=== PATIENT | female | born 1935 | race Caucasian/White ===

== ENCOUNTER 2017-05-26 21:29 | Inpatient (IN) | payer MEDICARE, MEDICAID ==
[~2017-05-26] VITALS: Ht 162.6 cm; Wt 79.2 kg
[~2017-05-26 21:29] MED LIST: AMLO5TAB4 PO; ASPI-1158 PO; ATOR20TA PO; ATOR20TA65 PO; DEXL60CA3 PO; ISOS20TA8 PO; LOSA100T3 PO; MONT10TA21 PO; OLME40TA12 PO; ONDA4TAB5 PO; ZOLP10TA2 PO
[2017-05-26] MEDS ORDERED: ALBUTEROL (0.083%) 2.5MG/3ML NEB HHN STA (23:42)
[2017-05-26] MEDS ORDERED: IPRATROPIUM BROMIDE (0.02%) 0.5MG/2.5ML NEB HHN STA (23:42)
[2017-05-27] VITALS (30 sets, daily range): BP systolic 84–184; BP diastolic 39–141
[2017-05-27 00:33] LABS: MEAN CORPUSCULAR HEMOGLOBIN 29.6 pg (28.0-32.0); MEAN CORPUSCULAR VOLUME 91.1 fL (81.0-99.0); MEAN PLATELET VOLUME 6.9 fl (7.4-10.4); PLATELET 224 x1000/uL (130-400); RED BLOOD CELL COUNT 1.99 mill/uL (4.2-5.4)
[2017-05-27 00:36] LABS: HEMOGLOBIN. 5.9 g/dL (12.0-16.0)
[2017-05-27 00:37] LABS: HEMATOCRIT. 18.2 % (36.0-48.0)
[2017-05-27 00:41] LABS: INR 1.1; PROTHROMBIN TIME 11.8 sec (9.4-11.6)
[2017-05-27 00:58] LABS: CHLORIDE 105 mEq/L (98-107); TROPONIN I 0.09 ng/mL (0.00-0.04)
[2017-05-27] MEDS ORDERED: INSULIN REGULAR (HUMULIN R) 300UNITS/3ML IV SCH (01:30)
[2017-05-27] MEDS ORDERED: AZITHROMYCIN 500 MG in DEXT 5% WATER 250 ML IV SCH (01:30)
[2017-05-27] MEDS ORDERED: CALCIUM CHLORIDE 1GM/10ML SYR IV SCH (01:30)
[2017-05-27] MEDS ORDERED: SODIUM BICARBONATE 8.4% 1 MEQ/ML 50ML SYR IV SCH (01:30)
[2017-05-27] MEDS ORDERED: CEFTRIAXONE 1 G PREMIX 50 ML IV SCH (01:30)
[2017-05-27] MEDS ORDERED: DEXTROSE 50% WATER 50ML SYRINGE IV SCH (01:30)
[2017-05-27] MEDS ORDERED: SODIUM POLYSTYRENE SULFONATE 15 G/60 ML BOT PO SCH (01:30)
[2017-05-27 02:13] LABS: PLATELET ESTIMATE NORMAL
[2017-05-27] MEDS ORDERED: LIDOCAINE HCL 1% 20ML VIAL (Pyxis) INJ ONE (11:26)
[2017-05-27] MEDS ORDERED: ALBUTEROL (0.083%) 2.5MG/3ML NEB ONE (11:57)
[2017-05-27] MEDS ORDERED: IPRATROPIUM BROMIDE (0.02%) 0.5MG/2.5ML NEB ONE (11:57)
[2017-05-27 12:11] LABS: HEPATITIS B SURFACE ANTIGEN NEGATIVE
[2017-05-27 12:40] LABS: HEPATITIS B CORE AB IGM NEGATIVE
[2017-05-27 12:41] LABS: HEPATITIS A AB IGM NEGATIVE (NEGATIVE)
[2017-05-27] MEDS ORDERED: IPRATROPIUM/ALBUTEROL 0.5-3(2.5)MG/3ML NEB HHN PRN (12:45)
[2017-05-27] MEDS ORDERED: LORAZEPAM 2MG/ML CPJ IV PRN (15:00)
[2017-05-27] MEDS ORDERED: MORPHINE SULFATE 2 MG/ML CPJ (NOT FOR IM USE) IV PRN (15:00)
[2017-05-27] MEDS ORDERED: LORAZEPAM 2MG/ML CPJ IV NR (15:30)
[2017-05-27] MEDS ORDERED: PANTOPRAZOLE SODIUM 40 MG/VIAL IV NR (15:30)
[2017-05-27 16:05] LABS: BG DEOXYHEMOGLOBIN 2.5 % (0.0-5.0); BG HCO3 ACT 12.5 mmol/L (22.0-26.0); BG METHEMOGLOBIN 0.3 % (0.0-1.5); BG OXYGEN SATURATION 97.5 % (92.0-98.5); BG OXYHEMOGLOBIN 96.2 % (94.0-97.0); BG PCO2 36.2 mmHg (35.0-45.0); BG PH 7.157 (7.350-7.450); BG PO2 109.4 mmHg (75.0-100.0); BG SAMPLE SITE RIGHT RADIAL; BG VENT MODE NASAL CANNULA
[2017-05-27] MEDS: IPRATROPIUM/ALBUTEROL 0.5-3(2.5)MG/3ML NEB HHN SCH ×2 (16:57→21:00)
[2017-05-27] MEDS ORDERED: ONDANSETRON HCL 4MG/2ML VIAL IV PRN (17:30)
[2017-05-27] MEDS ORDERED: SODIUM BICARBONATE 8.4% 1 MEQ/ML 50ML SYR IV NR (17:30)
[2017-05-27] MEDS ORDERED: DILTIAZEM HCL 5MG/ML 5ML VIAL IV NR ×2 (20:00→21:45)
[2017-05-27] MEDS: DILTIAZEM HCL 125 MG in SODIUM CHLORIDE 0.9% 100 ML IV PRN (20:11)
[2017-05-27] MEDS ORDERED: VECURONIUM BROMIDE 10 MG/VIAL IV ONE (21:00)
[2017-05-27] MEDS ORDERED: ETOMIDATE 2MG/ML 10ML VIAL IV ONE (21:00)
[2017-05-27] MEDS ORDERED: STERILE WATER FOR INJECTION 10ML VIAL ONE (21:00)
[2017-05-27] MEDS ORDERED: NOREPINEPHRINE 8 MG in DEXT 5% WATER 242 ML IV PRN (22:00)
[2017-05-27] MEDS: PROPOFOL 10MG/ML 100ML 100 ML IV PRN (22:20)
[2017-05-27 22:32] LABS: BG BASE EXCESS -1.6 mmol/L (-2.0-2.0); BG CARBOXYHEMOGLOBIN 0.3 % (0.5-1.5); BG DEOXYHEMOGLOBIN 0.6 % (0.0-5.0); BG FRACTION INSPIRED OXYGEN 100; BG HCO3 ACT 22.6 mmol/L (22.0-26.0); BG METHEMOGLOBIN 0.2 % (0.0-1.5); BG OXYGEN SATURATION 99.4 % (92.0-98.5); BG OXYHEMOGLOBIN 98.9 % (94.0-97.0); BG PCO2 36.2 mmHg (35.0-45.0); BG PH 7.414 (7.350-7.450); BG SAMPLE SITE RIGHT RADIAL; BG TIDAL VOLUME(mL) 500 mL; BG TOTAL HEMOGLOBIN 9.8 g/dL (12.0-18.0); BG VENT MODE VENT - A/C; BG VENT RATE 18 set
[2017-05-27] MEDS: AMLODIPINE 5MG TABLET PO SCH (22:37)
[2017-05-27] MEDS: ATORVASTATIN CALCIUM 20MG TABLET PO SCH (22:37)
[2017-05-28] VITALS (96 sets, daily range): BP systolic 88–163; BP diastolic 45–91
[2017-05-28] MEDS: IPRATROPIUM/ALBUTEROL 0.5-3(2.5)MG/3ML NEB HHN SCH ×6 (00:23→20:12)
[2017-05-28] MEDS: DILTIAZEM HCL 125 MG in SODIUM CHLORIDE 0.9% 100 ML IV PRN ×2 (04:44→17:50)
[2017-05-28] MEDS: PROPOFOL 10MG/ML 100ML 100 ML IV PRN ×3 (04:54→20:12)
[2017-05-28 05:46] LABS: HEMATOCRIT 21.8 % (36.0-48.0); HEMOGLOBIN 7.5 g/dL (12.0-16.0); MEAN CORPUSCULAR HEMOGLOBIN 30.5 pg (28.0-32.0); MEAN CORPUSCULAR VOLUME 88.4 fL (81.0-99.0); PLATELET 210 x1000/uL (130-400); RED BLOOD CELL COUNT 2.47 mill/uL (4.2-5.4); RED CELL DISTRIBUTION WIDTH 16.1 % (11.6-14.6)
[2017-05-28 08:18] LABS: BG BASE EXCESS -1.8 mmol/L (-2.0-2.0); BG CARBOXYHEMOGLOBIN 0.6 % (0.5-1.5); BG DEOXYHEMOGLOBIN 1.5 % (0.0-5.0); BG FRACTION INSPIRED OXYGEN 40; BG HCO3 ACT 21.6 mmol/L (22.0-26.0); BG METHEMOGLOBIN 0.3 % (0.0-1.5); BG OXYGEN SATURATION 98.5 % (92.0-98.5); BG OXYHEMOGLOBIN 97.6 % (94.0-97.0); BG PCO2 30.4 mmHg (35.0-45.0); BG PH 7.469 (7.350-7.450); BG PO2 108.9 mmHg (75.0-100.0); BG SAMPLE SITE RIGHT RADIAL; BG TIDAL VOLUME(mL) 500 mL; BG TOTAL HEMOGLOBIN 6.9 g/dL (12.0-18.0); BG VENT MODE VENT - A/C; BG VENT RATE 16 set
[2017-05-28] MEDS ORDERED: METOPROLOL TARTRATE 50MG TABLET PO SCH ×2 (09:00)
[2017-05-28] MEDS: AMLODIPINE 5MG TABLET PO SCH ×2 (09:00→21:46)
[2017-05-28] MEDS: PANTOPRAZOLE SODIUM 40 MG/VIAL IV SCH (09:47)
[2017-05-28] MEDS ORDERED: LEVOFLOXACIN 750MG PREMIX 150 ML IV SCH (13:00)
[2017-05-28] MEDS ORDERED: HEPARIN SODIUM 1,000 UNIT/1ML VIAL IV NR (17:08)
[2017-05-28] MEDS: ATORVASTATIN CALCIUM 20MG TABLET PO SCH (21:46)
[2017-05-28] MEDS: METOPROLOL TARTRATE 25MG TABLET PO SCH (21:46)
[2017-05-29] VITALS (86 sets, daily range): BP systolic 95–159; BP diastolic 39–100
[2017-05-29] MEDS: IPRATROPIUM/ALBUTEROL 0.5-3(2.5)MG/3ML NEB HHN SCH ×7 (00:40→23:53)
[2017-05-29] MEDS: PROPOFOL 10MG/ML 100ML 100 ML IV PRN ×4 (02:11→19:40)
[2017-05-29 05:56] LABS: BASOPHILS % 0.4 % (0.0-2.0); EOSINOPHILS % 1.1 % (0.0-5.0); MEAN CORPUSCULAR HEMOGLOBIN 30.4 pg (28.0-32.0); MEAN CORPUSCULAR VOLUME 88.2 fL (81.0-99.0); MEAN PLATELET VOLUME 7.2 fl (7.4-10.4); MONOCYTES % 6.2 % (2.0-8.0); NEUTROPHILS % 86.3 % (40.0-76.0); PLATELET 177 x1000/uL (130-400); RED BLOOD CELL COUNT 2.31 mill/uL (4.2-5.4); RED CELL DISTRIBUTION WIDTH 16.5 % (11.6-14.6)
[2017-05-29 06:28] LABS: HEMATOCRIT. 20.4 % (36.0-48.0)
[2017-05-29 07:12] LABS: BG BASE EXCESS 1.8 mmol/L (-2.0-2.0); BG DEOXYHEMOGLOBIN 2.5 % (0.0-5.0); BG METHEMOGLOBIN 0.6 % (0.0-1.5); BG OXYGEN SATURATION 97.5 % (92.0-98.5); BG OXYHEMOGLOBIN 96.9 % (94.0-97.0); BG PCO2 38.7 mmHg (35.0-45.0); BG PH 7.445 (7.350-7.450); BG PO2 101.4 mmHg (75.0-100.0); BG SAMPLE SITE RIGHT RADIAL; BG TIDAL VOLUME(mL) 500 mL; BG TOTAL HEMOGLOBIN 8.3 g/dL (12.0-18.0); BG VENT MODE VENT - A/C; BG VENT RATE 12 set
[2017-05-29] MEDS: PANTOPRAZOLE SODIUM 40 MG/VIAL IV SCH (08:53)
[2017-05-29] MEDS: METOPROLOL TARTRATE 25MG TABLET PO SCH (08:53)
[2017-05-29] MEDS: AMLODIPINE 5MG TABLET PO SCH (08:54)
[2017-05-29] MEDS: LEVOTHYROXINE SODIUM 25MCG TABLET PO SCH (08:54)
[2017-05-29] MEDS: DILTIAZEM HCL 125 MG in SODIUM CHLORIDE 0.9% 100 ML IV PRN (09:22)
[2017-05-29] MEDS ORDERED: PHENYLEPHRINE 10 MG in DEXT 5% WATER 249 ML IV PRN (09:45)
[2017-05-29] MEDS ORDERED: AMIODARONE HCL 150 MG in DEXT 5% WATER 100 ML IV NR (10:30)
[2017-05-29] MEDS ORDERED: AMIODARONE HCL 900 MG in DEXT 5% WATER 482 ML IV SCH (10:30)
[2017-05-29] MEDS: ATORVASTATIN CALCIUM 20MG TABLET PO SCH (21:07)
[2017-05-30] VITALS (72 sets, daily range): BP systolic 121–180; BP diastolic 46–122
[2017-05-30] MEDS: PROPOFOL 10MG/ML 100ML 100 ML IV PRN ×2 (01:55→06:42)
[2017-05-30] MEDS: IPRATROPIUM/ALBUTEROL 0.5-3(2.5)MG/3ML NEB HHN SCH ×5 (04:11→20:04)
[2017-05-30] MEDS: LEVOTHYROXINE SODIUM 25MCG TABLET PO SCH (05:36)
[2017-05-30 05:38] LABS: HEMATOCRIT. 24.7 % (36.0-48.0); HEMOGLOBIN. 8.2 g/dL (12.0-16.0); MEAN CORPUSCULAR HEMOGLOBIN 29.1 pg (28.0-32.0); MEAN CORPUSCULAR VOLUME 87.5 fL (81.0-99.0); MEAN PLATELET VOLUME 7.4 fl (7.4-10.4); PLATELET 163 x1000/uL (130-400); RED BLOOD CELL COUNT 2.83 mill/uL (4.2-5.4); RED CELL DISTRIBUTION WIDTH 17.8 % (11.6-14.6)
[2017-05-30 06:22] LABS: PHOSPHORUS 2.6 mg/dL (2.5-4.9)
[2017-05-30 07:58] LABS: BG CARBOXYHEMOGLOBIN 0.3 % (0.5-1.5); BG DEOXYHEMOGLOBIN 2.8 % (0.0-5.0); BG FRACTION INSPIRED OXYGEN 35; BG HCO3 ACT 24.9 mmol/L (22.0-26.0); BG METHEMOGLOBIN 0.4 % (0.0-1.5); BG OXYGEN SATURATION 97.2 % (92.0-98.5); BG OXYHEMOGLOBIN 96.5 % (94.0-97.0); BG PCO2 36.7 mmHg (35.0-45.0); BG PO2 95.9 mmHg (75.0-100.0); BG SAMPLE SITE RIGHT RADIAL; BG TIDAL VOLUME(mL) 500 mL; BG TOTAL HEMOGLOBIN 9.5 g/dL (12.0-18.0); BG VENT MODE VENT - A/C; BG VENT RATE 12 set
[2017-05-30] MEDS: PANTOPRAZOLE SODIUM 40 MG/VIAL IV SCH (08:46)
[2017-05-30] MEDS: CLONIDINE 0.1MG TABLET PO PRN ×2 (10:08→16:28)
[2017-05-30 10:36] LABS: BG BASE EXCESS 1.6 mmol/L (-2.0-2.0); BG CARBOXYHEMOGLOBIN 0.3 % (0.5-1.5); BG DEOXYHEMOGLOBIN 1.6 % (0.0-5.0); BG FRACTION INSPIRED OXYGEN 35; BG HCO3 ACT 25.6 mmol/L (22.0-26.0); BG METHEMOGLOBIN 0.2 % (0.0-1.5); BG OXYGEN SATURATION 98.4 % (92.0-98.5); BG OXYHEMOGLOBIN 97.9 % (94.0-97.0); BG PCO2 37.8 mmHg (35.0-45.0); BG PH 7.448 (7.350-7.450); BG PO2 130.3 mmHg (75.0-100.0); BG PRESSURE SUPPORT 8; BG SAMPLE SITE RIGHT RADIAL; BG TOTAL HEMOGLOBIN 10.4 g/dL (12.0-18.0); BG VENT MODE VENT - CPAP
[2017-05-30 12:00] LABS: PLATELET ESTIMATE NORMAL
[2017-05-30] MEDS: AMIODARONE HCL 200 MG TABLET PO SCH ×2 (12:36→20:13)
[2017-05-30] MEDS: LEVOFLOXACIN 500MG PREMIX 100 ML IV SCH (14:18)
[2017-05-30] MEDS: ATORVASTATIN CALCIUM 20MG TABLET PO SCH (20:13)
[2017-05-31] VITALS (53 sets, daily range): BP systolic 125–163; BP diastolic 49–83
[2017-05-31] MEDS: IPRATROPIUM/ALBUTEROL 0.5-3(2.5)MG/3ML NEB HHN SCH ×6 (00:14→20:21)
[2017-05-31] MEDS: LEVOTHYROXINE SODIUM 25MCG TABLET PO SCH (05:33)
[2017-05-31 06:02] LABS: HEMATOCRIT. 25.5 % (36.0-48.0); HEMOGLOBIN. 8.3 g/dL (12.0-16.0); MEAN CORPUSCULAR VOLUME 88.9 fL (81.0-99.0); MEAN PLATELET VOLUME 7.4 fl (7.4-10.4); PLATELET 192 x1000/uL (130-400); RED BLOOD CELL COUNT 2.87 mill/uL (4.2-5.4); RED CELL DISTRIBUTION WIDTH 17.3 % (11.6-14.6)
[2017-05-31] MEDS: PANTOPRAZOLE SODIUM 40 MG/VIAL IV SCH (09:48)
[2017-05-31] MEDS: AMIODARONE HCL 200 MG TABLET PO SCH ×2 (09:48→20:59)
[2017-05-31 11:04] LABS: PLATELET ESTIMATE NORMAL
[2017-05-31] MEDS ORDERED: MORPHINE SULFATE 2 MG/ML CPJ (NOT FOR IM USE) IV PRN (15:00)
[2017-05-31] MEDS: ATORVASTATIN CALCIUM 20MG TABLET PO SCH (20:59)
[2017-06-01] VITALS (13 sets, daily range): BP systolic 124–166; BP diastolic 53–73
[2017-06-01] MEDS: IPRATROPIUM/ALBUTEROL 0.5-3(2.5)MG/3ML NEB HHN SCH ×7 (00:24→23:52)
[2017-06-01 05:35] LABS: HEMATOCRIT. 26.7 % (36.0-48.0); HEMOGLOBIN. 8.7 g/dL (12.0-16.0); MEAN CORPUSCULAR HEMOGLOBIN 28.8 pg (28.0-32.0); MEAN CORPUSCULAR VOLUME 88.5 fL (81.0-99.0); MEAN PLATELET VOLUME 7.4 fl (7.4-10.4); PLATELET 176 x1000/uL (130-400); RED BLOOD CELL COUNT 3.01 mill/uL (4.2-5.4); RED CELL DISTRIBUTION WIDTH 17.1 % (11.6-14.6)
[2017-06-01] MEDS: LEVOTHYROXINE SODIUM 25MCG TABLET PO SCH (05:40)
[2017-06-01 06:49] LABS: PHOSPHORUS 3.7 mg/dL (2.5-4.9)
[2017-06-01] MEDS: AMIODARONE HCL 200 MG TABLET PO SCH ×2 (08:23→20:38)
[2017-06-01] MEDS: PANTOPRAZOLE SODIUM 40 MG/VIAL IV SCH (08:23)
[2017-06-01 08:55] LABS: PLATELET ESTIMATE NORMAL
[2017-06-01] MEDS: LEVOFLOXACIN 500MG PREMIX 100 ML IV SCH (13:12)
[2017-06-01] MEDS: ATORVASTATIN CALCIUM 20MG TABLET PO SCH (20:38)
[2017-06-02] VITALS: BP 106/68
[2017-06-02] MEDS: IPRATROPIUM/ALBUTEROL 0.5-3(2.5)MG/3ML NEB HHN SCH ×5 (03:43→20:44)
[2017-06-02 04:00] VITALS: BP 125/46
[2017-06-02] MEDS: LEVOTHYROXINE SODIUM 25MCG TABLET PO SCH (06:01)
[2017-06-02] MEDS: FAMOTIDINE 20MG TABLET PO SCH (06:01)
[2017-06-02 07:10] LABS: INR 1.1; PROTHROMBIN TIME 11.4 sec (9.4-11.6)
[2017-06-02 07:20] LABS: BASOPHILS % 0.3 % (0.0-2.0); EOSINOPHILS % 3.9 % (0.0-5.0); HEMATOCRIT. 25.5 % (36.0-48.0); HEMOGLOBIN. 8.3 g/dL (12.0-16.0); LYMPHOCYTES % 7.6 % (20.0-50.0); MEAN CORPUSCULAR HEMOGLOBIN 28.8 pg (28.0-32.0); MEAN CORPUSCULAR VOLUME 88.7 fL (81.0-99.0); MEAN PLATELET VOLUME 7.1 fl (7.4-10.4); MONOCYTES % 8.6 % (2.0-8.0); NEUTROPHILS % 79.6 % (40.0-76.0); PLATELET 192 x1000/uL (130-400); RED BLOOD CELL COUNT 2.87 mill/uL (4.2-5.4); RED CELL DISTRIBUTION WIDTH 16.8 % (11.6-14.6)
[2017-06-02 08:00] VITALS: BP 180/74
[2017-06-02] MEDS: DOCUSATE SODIUM 100MG CAPSULE PO SCH ×2 (10:51→16:20)
[2017-06-02] MEDS: AMIODARONE HCL 200 MG TABLET PO SCH ×2 (10:52→21:29)
[2017-06-02] MEDS: CLONIDINE 0.1MG TABLET PO PRN (10:54)
[2017-06-02 12:00] VITALS: BP 120/66
[2017-06-02 16:00] VITALS: BP 104/62
[2017-06-02 20:00] VITALS: BP 143/62
[2017-06-02] MEDS ORDERED: LACTULOSE 20G/30ML UDC PO PRN (21:00)
[2017-06-02] MEDS: ATORVASTATIN CALCIUM 20MG TABLET PO SCH (21:29)
[2017-06-03] VITALS (8 sets, daily range): BP systolic 110–140; BP diastolic 50–75
[2017-06-03] MEDS: IPRATROPIUM/ALBUTEROL 0.5-3(2.5)MG/3ML NEB HHN SCH ×6 (00:23→20:38)
[2017-06-03] MEDS: LEVOTHYROXINE SODIUM 25MCG TABLET PO SCH (06:38)
[2017-06-03] MEDS: FAMOTIDINE 20MG TABLET PO SCH (06:38)
[2017-06-03] MEDS: DOCUSATE SODIUM 100MG CAPSULE PO SCH ×2 (08:52→16:43)
[2017-06-03] MEDS: AMIODARONE HCL 200 MG TABLET PO SCH ×2 (08:52→21:14)
[2017-06-03 10:41] LABS: BASOPHILS % 0.5 % (0.0-2.0); EOSINOPHILS % 3.5 % (0.0-5.0); HEMATOCRIT. 24.9 % (36.0-48.0); HEMOGLOBIN. 8.3 g/dL (12.0-16.0); LYMPHOCYTES % 7.1 % (20.0-50.0); MEAN CORPUSCULAR HEMOGLOBIN 29.6 pg (28.0-32.0); MEAN CORPUSCULAR VOLUME 89.1 fL (81.0-99.0); MONOCYTES % 7.1 % (2.0-8.0); NEUTROPHILS % 81.8 % (40.0-76.0); RED CELL DISTRIBUTION WIDTH 16.4 % (11.6-14.6)
[2017-06-03 11:22] LABS: PLATELET 142 x1000/uL (130-400)
[2017-06-03] MEDS ORDERED: SODIUM BICARBONATE 4% (2.4MEQ) 5ML VIAL IV ONE (11:41)
[2017-06-03] MEDS ORDERED: HEPARIN 1000 UNITS/ML 10ML ONE (11:41)
[2017-06-03] MEDS ORDERED: FENTANYL CITRATE/PF 50MCG/ML 2ML VIAL ONE (12:04)
[2017-06-03] MEDS ORDERED: FENTANYL CITRATE/PF 50MCG/ML 2ML VIAL IV ONE (12:30)
[2017-06-03] MEDS: LEVOFLOXACIN 500MG PREMIX 100 ML IV SCH (14:20)
[2017-06-03] MEDS ORDERED: ACETAMINOPHEN 325MG TABLET PO PRN (15:45)
[2017-06-03] MEDS: ATORVASTATIN CALCIUM 20MG TABLET PO SCH (21:14)
[2017-06-04] VITALS: BP 130/50
[2017-06-04] MEDS: IPRATROPIUM/ALBUTEROL 0.5-3(2.5)MG/3ML NEB HHN SCH ×5 (00:30→15:57)
[2017-06-04 04:00] VITALS: BP 134/55
[2017-06-04] MEDS: LEVOTHYROXINE SODIUM 25MCG TABLET PO SCH (06:06)
[2017-06-04] MEDS: FAMOTIDINE 20MG TABLET PO SCH (06:07)
[2017-06-04 06:52] LABS: HEMATOCRIT 24.1 % (36.0-48.0); MEAN CORPUSCULAR HEMOGLOBIN 29.5 pg (28.0-32.0); MEAN CORPUSCULAR VOLUME 88.6 fL (81.0-99.0); PLATELET 151 x1000/uL (130-400); RED BLOOD CELL COUNT 2.72 mill/uL (4.2-5.4); RED CELL DISTRIBUTION WIDTH 16.3 % (11.6-14.6)
[2017-06-04] MEDS: AMIODARONE HCL 200 MG TABLET PO SCH (08:04)
[2017-06-04] MEDS: DOCUSATE SODIUM 100MG CAPSULE PO SCH ×2 (08:04→16:52)
[2017-06-04 08:39] VITALS: BP 144/54
[2017-06-04] MEDS ORDERED: LEVO25TA7 PO (10:52)
[2017-06-04] MEDS ORDERED: AMIO100T4 PO (11:13)
[2017-06-04 12:13] VITALS: BP 141/56
[2017-06-04 12:50] VITALS: BP 141/56
[2017-06-04 16:00] VITALS: BP 139/47
== END 2017-06-04 20:50 | disposition home or self-care (01) | DRG 720 ==
LOC: ER 21:38 → MICUSO 05-27 01:38 → EDBEDREQ 05-27 01:44 → EDBEDREQDT 05-27 01:44 → EDBEDREQTM 05-27 01:44 → EDBEDREQSVC 05-27 01:49 → CANRESERV 05-27 08:10 → ENRESERV 05-27 08:10 → 8WST 06-01 09:02
PROVIDERS: ADMIT Internal Medicine; ATTEND Internal Medicine
PROC: 5A1945Z Respiratory Ventilation, 24-96 Consecutive Hours (ICD-10-PCS; principal; 2017-05-27)
PROC: 02HV33Z Insertion of Infusion Device into Superior Vena Cava, Percutaneous Approach (ICD-10-PCS; 2017-05-27)
PROC: B548ZZA Ultrasonography of Superior Vena Cava, Guidance (ICD-10-PCS; 2017-05-27)
PROC: 30233N1 Transfusion of Nonautologous Red Blood Cells into Peripheral Vein, Percutaneous Approach (ICD-10-PCS; 2017-05-27)
PROC: 5A1D70Z Performance of Urinary Filtration, Intermittent, Less than 6 Hours Per Day (ICD-10-PCS; 2017-05-27)
PROC: 0BH17EZ Insertion of Endotracheal Airway into Trachea, Via Natural or Artificial Opening (ICD-10-PCS; 2017-05-27)
PROC: 5A1D70Z Performance of Urinary Filtration, Intermittent, Less than 6 Hours Per Day (ICD-10-PCS; 2017-05-28)
PROC: 5A1D70Z Performance of Urinary Filtration, Intermittent, Less than 6 Hours Per Day (ICD-10-PCS; 2017-05-29)
PROC: 5A1D70Z Performance of Urinary Filtration, Intermittent, Less than 6 Hours Per Day (ICD-10-PCS; 2017-05-31)
PROC: 0JH63XZ Insertion of Tunneled Vascular Access Device into Chest Subcutaneous Tissue and Fascia, Percutaneous Approach (ICD-10-PCS; 2017-06-03)
PROC: 02H633Z Insertion of Infusion Device into Right Atrium, Percutaneous Approach (ICD-10-PCS; 2017-06-03)
PROC: B2141ZZ Fluoroscopy of Right Heart using Low Osmolar Contrast (ICD-10-PCS; 2017-06-03)
PROC: B244ZZZ Ultrasonography of Right Heart (ICD-10-PCS; 2017-06-03)
PROC: 5A1D70Z Performance of Urinary Filtration, Intermittent, Less than 6 Hours Per Day (ICD-10-PCS; 2017-06-03)
DX: A41.9 Sepsis, unspecified organism (principal); J96.00 Acute respiratory failure, unspecified whether with hypoxia or hypercapnia; E43 Unspecified severe protein-calorie malnutrition; G93.41 Metabolic encephalopathy; J18.9 Pneumonia, unspecified organism; N17.9 Acute kidney failure, unspecified; I50.43 Acute on chronic combined systolic (congestive) and diastolic (congestive) heart failure; E87.2 Acidosis; N18.6 End stage renal disease; L03.115 Cellulitis of right lower limb; I13.2 Hypertensive heart and chronic kidney disease with heart failure and with stage 5 chronic kidney disease, or end stage renal disease; L03.116 Cellulitis of left lower limb; E87.5 Hyperkalemia; E83.51 Hypocalcemia; I48.0 Paroxysmal atrial fibrillation; E11.22 Type 2 diabetes mellitus with diabetic chronic kidney disease; E03.9 Hypothyroidism, unspecified; D64.9 Anemia, unspecified; E78.5 Hyperlipidemia, unspecified; M19.90 Unspecified osteoarthritis, unspecified site; K21.9 Gastro-esophageal reflux disease without esophagitis; J98.11 Atelectasis; Z79.899 Other long term (current) drug therapy; Z99.2 Dependence on renal dialysis; Z79.82 Long term (current) use of aspirin; Z68.30 Body mass index [BMI] 30.0-30.9, adult
CPT/HCPCS: 31500; 36415; 36556; 36558; 36589; 36600; 71045; 76937; 77001; 80048; 80053; 80061; 80076; 82375; 82805; 82962; 83036; 83605; 83735; 83880; 84100; 84443; 84478; 84484; 85025; 85027; 85610; 86705; 86709; 86803; 86850; 86900; 86920; 87040; 87070; 87340; 92610; 93005; 93306; 93970; 94003; 94640; 94664; 96365; 96375; 97162; 99291; A4216; C1750; C1752; C1893; C9113; J0282; J0456; J0696; J1644; J1815; J1956; J2270; J2704; J3010; J3490; J7030; J7050; J7060; J7611; J7620; P9016

== ENCOUNTER 2017-08-28 07:16 | Emergency (ER) | payer MEDICARE, MEDICAID ==
[2017-08-28] VITALS (15 sets, daily range): BP systolic 144–182; BP diastolic 69–113
[~2017-08-28] VITALS: Ht 157.5 cm; Wt 73.0 kg
[~2017-08-28 07:16] MED LIST changes: +AMIO100T4 PO; +LEVO25TA7 PO
[2017-08-28 10:01] LABS: BASOPHILS % 3.4 % (0.0-2.0); EOSINOPHILS % 6.8 % (0.0-5.0); MEAN CORPUSCULAR VOLUME 89.9 fL (81.0-99.0); MEAN PLATELET VOLUME 7.5 fl (7.4-10.4); MONOCYTES % 5.7 % (2.0-8.0); NEUTROPHILS % 50.1 % (40.0-76.0); PLATELET 200 x1000/uL (130-400); RED CELL DISTRIBUTION WIDTH 15.1 % (11.6-14.6)
[2017-08-28 10:06] LABS: INR 1.1; PROTHROMBIN TIME 11.2 sec (9.4-11.6)
[2017-08-28] MEDS ORDERED: LIDOCAINE HCL/PF 1% 10 MG/ML 5ML VIAL ONE (10:26)
[2017-08-28] MEDS ORDERED: SODIUM BICARBONATE 4% (2.4MEQ) 5ML VIAL IV ONE (10:26)
[2017-08-28] MEDS ORDERED: FENTANYL CITRATE/PF 50MCG/ML 2ML VIAL ONE (10:29)
[2017-08-28] MEDS ORDERED: CEFAZOLIN 1000MG PREMIX 50 ML IV ONE ×2 (10:29→11:00)
[2017-08-28] MEDS ORDERED: FENTANYL CITRATE/PF 50MCG/ML 2ML VIAL IV NR (11:07)
[2017-08-28] MEDS ORDERED: SODIUM POLYSTYRENE SULFONATE 15 G/60 ML BOT PO ONE (13:00)
== END 2017-08-28 13:16 | disposition home or self-care (01) ==
LOC: ER 08:35
DX: T82.42XA Displacement of vascular dialysis catheter, initial encounter (principal); I12.0 Hypertensive chronic kidney disease with stage 5 chronic kidney disease or end stage renal disease; N18.6 End stage renal disease; Z99.2 Dependence on renal dialysis; Z79.82 Long term (current) use of aspirin; Y92.89 Other specified places as the place of occurrence of the external cause
CPT/HCPCS: 36415; 36558; 76937; 77001; 80048; 85025; 85610; 96365; 96375; 99285; C1725; C1750; C1769; J0690; J1642; J3010; J3490; J7040

== ENCOUNTER 2018-01-20 14:04 | Inpatient (IN) | payer MEDICARE, MEDICAID ==
[~2018-01-20] VITALS: Ht 134.6 cm; Wt 71.7 kg
[2018-01-20] MEDS ORDERED: ACETAMINOPHEN 325MG TABLET PO STA (16:44)
[2018-01-20 17:45] LABS: BASOPHILS % 1.5 % (0.0-2.0); EOSINOPHILS % 3.4 % (0.0-5.0); HEMATOCRIT. 37.1 % (36.0-48.0); HEMOGLOBIN. 12.5 g/dL (12.0-16.0); LYMPHOCYTES % 17.1 % (20.0-50.0); MEAN CORPUSCULAR VOLUME 92.1 fL (81.0-99.0); MEAN PLATELET VOLUME 7.4 fl (7.4-10.4); MONOCYTES % 5.1 % (2.0-8.0); NEUTROPHILS % 72.9 % (40.0-76.0); PLATELET 216 x1000/uL (130-400); RED BLOOD CELL COUNT 4.03 mill/uL (4.2-5.4)
[2018-01-20 17:47] LABS: CHLORIDE 95 mEq/L (98-107)
[2018-01-20 17:48] LABS: PROTHROMBIN TIME 10.1 sec (9.1-11.1)
[2018-01-20] MEDS ORDERED: DEXTROSE 50% WATER 50ML SYRINGE IV ONE (18:00)
[2018-01-20] MEDS ORDERED: SODIUM BICARBONATE 8.4% 1 MEQ/ML 50ML SYR IV ONE (18:00)
[2018-01-20] MEDS ORDERED: SODIUM POLYSTYRENE SULFONATE 15 G/60 ML BOT PO ONE (18:00)
[2018-01-20] MEDS ORDERED: INSULIN REGULAR (HUMULIN R) 300UNITS/3ML IV ONE (18:00)
[2018-01-20 21:06] LABS: CLARITY URINE TURBID (CLEAR); COLOR URINE YELLOW (YELLOW); KETONES URINE NEGATIVE (NEGATIVE); LEUKOCYTE ESTERASE URINE 3+ (NEGATIVE); NITRITE URINE NEGATIVE (NEGATIVE); OCCULT BLOOD URINE 1+ (NEGATIVE); PROTEIN URINE 2+ (NEGATIVE); UROBILINOGEN URINE 0.2 E.U./dL (0.2-1.0)
[2018-01-20] MEDS ORDERED: CEFTRIAXONE 1 G PREMIX 50 ML IV ONE (22:00)
[2018-01-20] MEDS ORDERED: ACETAMINOPHEN 325MG TABLET PO PRN (23:00)
[2018-01-20] MEDS ORDERED: ONDANSETRON HCL 4MG/2ML INJ IV PRN (23:00)
[2018-01-21] VITALS (8 sets, daily range): BP systolic 126–172; BP diastolic 52–75
[2018-01-21] MEDS ORDERED: CLONIDINE 0.1MG TABLET PO PRN (00:46)
[2018-01-21] MEDS ORDERED: DIPHENHYDRAMINE 50MG/ML VIAL IV PRN (00:50)
[2018-01-21] MEDS ORDERED: DOCUSATE SODIUM 100MG CAPSULE PO PRN (00:51)
[2018-01-21 01:37] LABS: PHOSPHORUS 10.1 mg/dL (2.5-4.9)
[2018-01-21] MEDS ORDERED: CALCIUM CHLORIDE 1,000 MG in DEXT 5% WATER 90 ML IV SCH (03:00)
[2018-01-21] MEDS: ENOXAPARIN 30MG/0.3ML SYR SUBCUT SCH (08:04)
[2018-01-21] MEDS: CALCIUM ACETATE 667MG CAPSULE PO SCH ×3 (08:05→18:36)
[2018-01-21 10:43] LABS: BASOPHILS % 1.2 % (0.0-2.0); EOSINOPHILS % 1.7 % (0.0-5.0); HEMATOCRIT. 34.9 % (36.0-48.0); LYMPHOCYTES % 13.1 % (20.0-50.0); MEAN CORPUSCULAR HEMOGLOBIN 31.6 pg (28.0-32.0); MEAN CORPUSCULAR VOLUME 91.6 fL (81.0-99.0); MEAN PLATELET VOLUME 8.1 fl (7.4-10.4); MONOCYTES % 4.4 % (2.0-8.0); NEUTROPHILS % 79.6 % (40.0-76.0); PLATELET 176 x1000/uL (130-400); RED BLOOD CELL COUNT 3.81 mill/uL (4.2-5.4); RED CELL DISTRIBUTION WIDTH 15.1 % (11.6-14.6)
[2018-01-21 11:12] LABS: CHLORIDE 100 mEq/L (98-107)
[2018-01-21 11:20] LABS: CREATINE KINASE 48 IU/L (26-192)
[2018-01-21 11:22] LABS: CREATINE KINASE MB FRACTION 1.9 ng/mL (0.5-3.6)
[2018-01-21] MEDS: LOSARTAN POTASSIUM 50 MG TABLET PO SCH (12:36)
[2018-01-21 15:41] LABS: CREATINE KINASE MB FRACTION 1.4 ng/mL (0.5-3.6)
[2018-01-21] MEDS: AMLODIPINE 5MG TABLET PO SCH (22:04)
[2018-01-22] VITALS (7 sets, daily range): BP systolic 108–150; BP diastolic 51–65
[2018-01-22 07:31] LABS: BASOPHILS % 1.6 % (0.0-2.0); EOSINOPHILS % 3.8 % (0.0-5.0); HEMATOCRIT. 30.5 % (36.0-48.0); HEMOGLOBIN. 10.5 g/dL (12.0-16.0); MEAN CORPUSCULAR HEMOGLOBIN 31.6 pg (28.0-32.0); MEAN CORPUSCULAR VOLUME 91.8 fL (81.0-99.0); MEAN PLATELET VOLUME 7.7 fl (7.4-10.4); MONOCYTES % 7.7 % (2.0-8.0); NEUTROPHILS % 56.9 % (40.0-76.0); PLATELET 167 x1000/uL (130-400); RED BLOOD CELL COUNT 3.33 mill/uL (4.2-5.4); RED CELL DISTRIBUTION WIDTH 14.8 % (11.6-14.6)
[2018-01-22] MEDS: CALCIUM ACETATE 667MG CAPSULE PO SCH ×3 (08:21→18:20)
[2018-01-22] MEDS: LOSARTAN POTASSIUM 50 MG TABLET PO SCH (08:21)
[2018-01-22] MEDS: AMLODIPINE 5MG TABLET PO SCH (08:26)
[2018-01-22] MEDS: ENOXAPARIN 30MG/0.3ML SYR SUBCUT SCH (08:27)
[2018-01-22] MEDS: NIFEDIPINE XL 60MG TAB PO SCH (11:15)
[2018-01-22] MEDS ORDERED: LEVOFLOXACIN 250MG PREMIX 50 ML IV SCH (12:00)
[2018-01-22] MEDS ORDERED: GENTAMICIN SULFATE 160 MG in SODIUM CHLORIDE 0.9% 100 ML IV NR (20:00)
[2018-01-23] VITALS: BP 148/56
[2018-01-23 04:00] VITALS: BP 151/58
[2018-01-23 07:09] LABS: BASOPHILS % 1.2 % (0.0-2.0); EOSINOPHILS % 5.4 % (0.0-5.0); HEMATOCRIT. 32.3 % (36.0-48.0); HEMOGLOBIN. 11.2 g/dL (12.0-16.0); LYMPHOCYTES % 29.9 % (20.0-50.0); MEAN CORPUSCULAR HEMOGLOBIN 31.8 pg (28.0-32.0); MEAN CORPUSCULAR VOLUME 91.7 fL (81.0-99.0); MEAN PLATELET VOLUME 7.8 fl (7.4-10.4); MONOCYTES % 7.3 % (2.0-8.0); NEUTROPHILS % 56.2 % (40.0-76.0); PLATELET 159 x1000/uL (130-400); RED BLOOD CELL COUNT 3.53 mill/uL (4.2-5.4); RED CELL DISTRIBUTION WIDTH 14.8 % (11.6-14.6)
[2018-01-23 08:00] VITALS: BP 144/52
[2018-01-23] MEDS: LOSARTAN POTASSIUM 50 MG TABLET PO SCH (08:59)
[2018-01-23] MEDS: NIFEDIPINE XL 60MG TAB PO SCH (09:00)
[2018-01-23] MEDS: CALCIUM ACETATE 667MG CAPSULE PO SCH (09:01)
[2018-01-23] MEDS: ENOXAPARIN 30MG/0.3ML SYR SUBCUT SCH (09:04)
[2018-01-23 11:43] VITALS: BP 139/79
[2018-01-23 12:07] VITALS: BP 139/79
== END 2018-01-23 12:52 | disposition home or self-care (01) | DRG 48 ==
LOC: ER 16:25 → 7WST 18:57 → EDBEDREQTM 19:01 → EDBEDREQ 19:01 → ENRESERV 21:09
PROVIDERS: ADMIT Internal Medicine Nephrology; ATTEND Internal Medicine Nephrology
PROC: 5A1D70Z Performance of Urinary Filtration, Intermittent, Less than 6 Hours Per Day (ICD-10-PCS; 2018-01-20)
PROC: 4A00X4Z Measurement of Central Nervous Electrical Activity, External Approach (ICD-10-PCS; principal; 2018-01-22)
PROC: 5A1D70Z Performance of Urinary Filtration, Intermittent, Less than 6 Hours Per Day (ICD-10-PCS; 2018-01-22)
DX: G90.8 Other disorders of autonomic nervous system (principal); E44.0 Moderate protein-calorie malnutrition; E11.22 Type 2 diabetes mellitus with diabetic chronic kidney disease; E83.39 Other disorders of phosphorus metabolism; I13.11 Hypertensive heart and chronic kidney disease without heart failure, with stage 5 chronic kidney disease, or end stage renal disease; E87.5 Hyperkalemia; E87.1 Hypo-osmolality and hyponatremia; N18.6 End stage renal disease; N39.0 Urinary tract infection, site not specified; Z99.2 Dependence on renal dialysis; Z68.39 Body mass index [BMI] 39.0-39.9, adult; B96.20 Unspecified Escherichia coli [E. coli] as the cause of diseases classified elsewhere; D64.9 Anemia, unspecified; E03.9 Hypothyroidism, unspecified; E78.00 Pure hypercholesterolemia, unspecified; E78.5 Hyperlipidemia, unspecified; R00.1 Bradycardia, unspecified; K21.9 Gastro-esophageal reflux disease without esophagitis; Z82.49 Family history of ischemic heart disease and other diseases of the circulatory system; E83.51 Hypocalcemia; G31.9 Degenerative disease of nervous system, unspecified; Z79.82 Long term (current) use of aspirin; Z79.899 Other long term (current) drug therapy
CPT/HCPCS: 36415; 70450; 70544; 70553; 71045; 80048; 80053; 81003; 82330; 82550; 82553; 82962; 83735; 83970; 84100; 84132; 84443; 84484; 85025; 85610; 87040; 87070; 87086; 87186; 87205; 93005; 93306; 93880; 93970; 96374; 96375; 97162; 99285; J0696; J1580; J1650; J1815; J1956; J3490; J7030; J7050; J7060

== ENCOUNTER 2018-08-25 11:36 | Inpatient (IN) | payer MEDICARE, MEDICAID ==
[~2018-08-25] VITALS: Ht 154.9 cm; Wt 78.1 kg
[2018-08-25] VITALS (22 sets, daily range): BP systolic 112–184; BP diastolic 49–100
[~2018-08-25 11:36] MED LIST changes: -AMIO100T4 PO; -ATOR20TA65 PO; +OLME40TA11 PO; -OLME40TA12 PO
[2018-08-25 12:35] LABS: BASOPHILS % 1.4 % (0.0-2.0); EOSINOPHILS % 4.7 % (0.0-5.0); HEMATOCRIT. 35.4 % (36.0-48.0); LYMPHOCYTES % 23.5 % (20.0-50.0); MEAN CORPUSCULAR HEMOGLOBIN 32.6 pg (28.0-32.0); MEAN CORPUSCULAR VOLUME 95.7 fL (81.0-99.0); MEAN PLATELET VOLUME 7.3 fl (7.4-10.4); MONOCYTES % 5.4 % (2.0-8.0); PLATELET 221 x1000/uL (130-400); RED CELL DISTRIBUTION WIDTH 14.4 % (11.6-14.6)
[2018-08-25 12:37] LABS: CHLORIDE 101 mEq/L (98-107)
[2018-08-25] MEDS ORDERED: LIDOCAINE HCL 1% 20ML VIAL (Pyxis) INJ ONE ×2 (12:52→15:11)
[2018-08-25] MEDS ORDERED: SODIUM BICARBONATE 4% (2.4MEQ) 5ML VIAL IV ONE ×2 (12:52→15:11)
[2018-08-25] MEDS ORDERED: CALCIUM CHLORIDE 1GM/10ML SYR IV ONE (13:00)
[2018-08-25] MEDS ORDERED: INSULIN REGULAR (HUMULIN R) 300UNITS/3ML IV ONE (13:00)
[2018-08-25] MEDS ORDERED: DEXTROSE 50% WATER 50ML SYRINGE IV ONE ×2 (13:00→13:07)
[2018-08-25] MEDS ORDERED: SODIUM BICARBONATE 8.4% 1 MEQ/ML 50ML SYR IV ONE (13:00)
[2018-08-25] MEDS ORDERED: CEFAZOLIN 1000MG PREMIX 50 ML IV NR (13:00)
[2018-08-25] MEDS ORDERED: ALBUTEROL (0.083%) 2.5MG/3ML NEB HHN ONE (13:00)
[2018-08-25] MEDS ORDERED: FENTANYL CITRATE/PF 50MCG/ML 2ML VIAL ONE (13:13)
[2018-08-25] MEDS ORDERED: ONDANSETRON HCL 4MG/2ML INJ IV PRN (13:15)
[2018-08-25] MEDS ORDERED: CLONIDINE 0.1MG TABLET PO PRN (13:15)
[2018-08-25] MEDS ORDERED: IOHEXOL-300 50 ML BOTTLE IV ONE (14:38)
[2018-08-25] MEDS ORDERED: FENTANYL CITRATE/PF 50MCG/ML 2ML VIAL IV ONE (15:15)
[2018-08-25] MEDS ORDERED: HYDROMORPHONE HCL/PF 2MG/ML CPJ IV PRN (17:00)
[2018-08-25] MEDS ORDERED: MONTELUKAST SODIUM 10MG TABLET PO SCH (17:00)
[2018-08-25] MEDS ORDERED: ISOSORBIDE DINITRATE 20MG TABLET PO SCH (17:00)
[2018-08-25] MEDS ORDERED: ENOXAPARIN 30MG/0.3ML SYR SUBCUT SCH (18:15)
[2018-08-25] MEDS: ACETAMINOPHEN 325MG TABLET PO PRN (18:47)
[2018-08-25] MEDS ORDERED: DEXTROSE 50% WATER 50ML SYRINGE IV PRN (19:45)
[2018-08-25] MEDS: ENOXAPARIN 30MG/0.3ML SYR SUBCUT SCH (20:49)
[2018-08-25] MEDS: ATORVASTATIN CALCIUM 20MG TABLET PO SCH (20:49)
[2018-08-25] MEDS: ISOSORBIDE DINITRATE 20MG TABLET PO SCH (20:49)
[2018-08-25] MEDS: INSULIN LISPRO 100 UNITS/ML SUBCUT SCH (20:50)
[2018-08-25] MEDS: BLOOD SUGAR DIAGNOSTIC STRIP TEST SCH (20:50)
[2018-08-25] MEDS: OMEPRAZOLE 20MG CAPSULE EXTENDED RELEASE PO SCH (20:50)
[2018-08-26] VITALS (17 sets, daily range): BP systolic 99–131; BP diastolic 41–70
[2018-08-26] MEDS: IPRATROPIUM/ALBUTEROL 0.5-3(2.5)MG/3ML NEB INH SCH ×4 (02:08→21:30)
[2018-08-26] MEDS: LEVOTHYROXINE SODIUM 25MCG TABLET PO SCH (06:22)
[2018-08-26] MEDS: OMEPRAZOLE 20MG CAPSULE EXTENDED RELEASE PO SCH ×2 (06:22→20:50)
[2018-08-26 06:32] LABS: CHLORIDE 101 mEq/L (98-107)
[2018-08-26 06:43] LABS: HDL CHOLESTEROL 38 mg/dL (40-59)
[2018-08-26] MEDS: BLOOD SUGAR DIAGNOSTIC STRIP TEST SCH ×4 (06:47→20:51)
[2018-08-26 06:49] LABS: LDL CHOLESTEROL 56 mg/dL (5-100)
[2018-08-26 07:02] LABS: BASOPHILS % 0.8 % (0.0-2.0); EOSINOPHILS % 1.5 % (0.0-5.0); HEMATOCRIT. 30.6 % (36.0-48.0); HEMOGLOBIN. 10.4 g/dL (12.0-16.0); LYMPHOCYTES % 17.1 % (20.0-50.0); MEAN CORPUSCULAR HEMOGLOBIN 32.8 pg (28.0-32.0); MEAN CORPUSCULAR VOLUME 95.9 fL (81.0-99.0); MEAN PLATELET VOLUME 7.7 fl (7.4-10.4); MONOCYTES % 7.1 % (2.0-8.0); NEUTROPHILS % 73.5 % (40.0-76.0); PLATELET 191 x1000/uL (130-400); RED BLOOD CELL COUNT 3.19 mill/uL (4.2-5.4); RED CELL DISTRIBUTION WIDTH 14.5 % (11.6-14.6)
[2018-08-26] MEDS: INSULIN LISPRO 100 UNITS/ML SUBCUT SCH ×4 (07:50→20:51)
[2018-08-26] MEDS: ISOSORBIDE DINITRATE 20MG TABLET PO SCH ×2 (09:00→20:50)
[2018-08-26] MEDS: AMLODIPINE 5MG TABLET PO SCH (09:00)
[2018-08-26] MEDS: ACETAMINOPHEN 325MG TABLET PO PRN ×2 (11:49→20:51)
[2018-08-26] MEDS ORDERED: LIDOCAINE HCL 1% 20ML VIAL (Pyxis) INJ ONE (13:18)
[2018-08-26] MEDS ORDERED: SODIUM BICARBONATE 4% (2.4MEQ) 5ML VIAL IV ONE (13:18)
[2018-08-26] MEDS ORDERED: FENTANYL CITRATE/PF 50MCG/ML 2ML VIAL IV ONE (13:30)
[2018-08-26] MEDS ORDERED: FENTANYL CITRATE/PF 50MCG/ML 2ML VIAL ONE (13:33)
[2018-08-26] MEDS ORDERED: HEPARIN 1000 UNITS/ML 10ML ONE (13:54)
[2018-08-26] MEDS ORDERED: MONTELUKAST SODIUM 10MG TABLET PO SCH (20:00)
[2018-08-26] MEDS: ENOXAPARIN 30MG/0.3ML SYR SUBCUT SCH (20:50)
[2018-08-26] MEDS: ATORVASTATIN CALCIUM 20MG TABLET PO SCH (20:50)
[2018-08-27] VITALS: BP 110/56
[2018-08-27] MEDS: IPRATROPIUM/ALBUTEROL 0.5-3(2.5)MG/3ML NEB INH SCH (01:02)
[2018-08-27 04:00] VITALS: BP 118/54
[2018-08-27] MEDS: LEVOTHYROXINE SODIUM 25MCG TABLET PO SCH (06:23)
[2018-08-27] MEDS: OMEPRAZOLE 20MG CAPSULE EXTENDED RELEASE PO SCH (06:23)
[2018-08-27] MEDS: BLOOD SUGAR DIAGNOSTIC STRIP TEST SCH (06:24)
[2018-08-27 06:32] LABS: BASOPHILS % 0.8 % (0.0-2.0); EOSINOPHILS % 3.9 % (0.0-5.0); HEMATOCRIT. 29.3 % (36.0-48.0); HEMOGLOBIN. 9.9 g/dL (12.0-16.0); LYMPHOCYTES % 19.3 % (20.0-50.0); MEAN CORPUSCULAR HEMOGLOBIN 32.6 pg (28.0-32.0); MEAN CORPUSCULAR VOLUME 96.7 fL (81.0-99.0); MEAN PLATELET VOLUME 7.6 fl (7.4-10.4); MONOCYTES % 6.6 % (2.0-8.0); NEUTROPHILS % 69.4 % (40.0-76.0); PLATELET 154 x1000/uL (130-400); RED BLOOD CELL COUNT 3.03 mill/uL (4.2-5.4); RED CELL DISTRIBUTION WIDTH 14.6 % (11.6-14.6)
[2018-08-27 08:00] VITALS: BP 155/71
[2018-08-27] MEDS ORDERED: SODIUM POLYSTYRENE SULFONATE 15 G/60 ML BOT PO NR (09:00)
[2018-08-27] MEDS: ISOSORBIDE DINITRATE 20MG TABLET PO SCH (09:28)
[2018-08-27] MEDS: AMLODIPINE 5MG TABLET PO SCH (09:29)
[2018-08-27 11:21] VITALS: BP 155/71
[2018-08-27 12:00] VITALS: BP 138/76
== END 2018-08-27 13:10 | disposition home or self-care (01) | DRG 192 ==
LOC: ER 12:05 → 6WST 13:00 → ENRESERV 14:51
PROVIDERS: ADMIT Internal Medicine Nephrology; ATTEND Internal Medicine Nephrology
PROC: 06H033Z Insertion of Infusion Device into Inferior Vena Cava, Percutaneous Approach (ICD-10-PCS; principal; 2018-08-25)
PROC: B5191ZA Fluoroscopy of Inferior Vena Cava using Low Osmolar Contrast, Guidance (ICD-10-PCS; 2018-08-25)
PROC: B549ZZA Ultrasonography of Inferior Vena Cava, Guidance (ICD-10-PCS; 2018-08-25)
PROC: 05JY3ZZ Inspection of Upper Vein, Percutaneous Approach (ICD-10-PCS; 2018-08-25)
PROC: 5A1D70Z Performance of Urinary Filtration, Intermittent, Less than 6 Hours Per Day (ICD-10-PCS; 2018-08-25)
PROC: B2141ZZ Fluoroscopy of Right Heart using Low Osmolar Contrast (ICD-10-PCS; 2018-08-26)
PROC: 0JH63XZ Insertion of Tunneled Vascular Access Device into Chest Subcutaneous Tissue and Fascia, Percutaneous Approach (ICD-10-PCS; 2018-08-26)
PROC: 02H633Z Insertion of Infusion Device into Right Atrium, Percutaneous Approach (ICD-10-PCS; 2018-08-26)
PROC: B244ZZZ Ultrasonography of Right Heart (ICD-10-PCS; 2018-08-26)
DX: T82.42XA Displacement of vascular dialysis catheter, initial encounter (principal); E11.22 Type 2 diabetes mellitus with diabetic chronic kidney disease; E87.5 Hyperkalemia; I12.0 Hypertensive chronic kidney disease with stage 5 chronic kidney disease or end stage renal disease; N18.6 End stage renal disease; E03.9 Hypothyroidism, unspecified; E78.5 Hyperlipidemia, unspecified; Y84.1 Kidney dialysis as the cause of abnormal reaction of the patient, or of later complication, without mention of misadventure at the time of the procedure; Z79.82 Long term (current) use of aspirin; Z99.2 Dependence on renal dialysis; Z79.899 Other long term (current) drug therapy; Y92.89 Other specified places as the place of occurrence of the external cause
CPT/HCPCS: 36415; 36558; 37248; 71045; 75827; 76937; 77001; 80048; 80061; 82962; 84443; 84484; 93970; 94640; 96374; 96375; 99152; 99153; 99285; C1725; C1750; C1769; J0690; J1642; J1644; J1650; J1815; J2405; J3010; J3490; J7050; J7611; J7620; Q9967; G0500